=== PATIENT | male | born 1950 | race Caucasian/White ===

== ENCOUNTER 2016-06-23 16:26 | Emergency (ER) | payer MEDICARE, OTHER ==
[~2016-06-23] VITALS: Ht 180.3 cm; Wt 94.5 kg
[~2016-06-23 16:26] MED LIST: AMLO5TAB2; ATOR20TA15; CHOL1CAP2; CLOP75TA; CLOR7.5T3; GLIP10TA6; LISI10TA3; METF1000; METH10TA; PRED20; TRAZ100T4
[2016-06-23 16:29] VITALS: BP 137/85; PULSE 90; RESP 20; TEMP 98.5; O2SAT 94
[2016-06-30] MEDS ORDERED: DILA4TAB2 PO (11:37)
[2016-07-15] MEDS ORDERED: METH10TA (13:00)
[2016-07-15] MEDS ORDERED: PROM25TA5 (13:00)
[2016-07-21] MEDS ORDERED: METF500T (10:35)
[2016-07-27] MEDS ORDERED: OXYC-395 PO ×3 (15:14→15:51)
[2016-08-11] MEDS ORDERED: BACT400T PO (11:35)
[2016-08-23] MEDS ORDERED: OXYC-395 PO (15:04)
[2016-09-26] MEDS ORDERED: ENDO10TA8 PO (17:26)
== END 2016-06-23 17:43 | disposition left against medical advice (07) ==
LOC: NED 16:26
DX: M54.9 Dorsalgia, unspecified (principal); M79.605 Pain in left leg; Z53.21 Procedure and treatment not carried out due to patient leaving prior to being seen by health care provider
CPT/HCPCS: 99281

== ENCOUNTER 2016-06-27 14:41 | Emergency (ER) | payer MEDICARE ==
[2016-06-27 14:44] VITALS: BP 134/79; PULSE 74; RESP 20; TEMP 98.1; O2SAT 96
[2016-06-30] MEDS ORDERED: DILA4TAB2 PO (11:37)
[2016-07-15] MEDS ORDERED: PROM25TA5 (13:00)
[2016-07-15] MEDS ORDERED: METH10TA (13:00)
[2016-07-21] MEDS ORDERED: METF500T (10:35)
[2016-07-27] MEDS ORDERED: OXYC-395 PO ×3 (15:14→15:51)
[2016-08-11] MEDS ORDERED: BACT400T PO (11:35)
[2016-08-23] MEDS ORDERED: OXYC-395 PO (15:04)
[2016-09-26] MEDS ORDERED: ENDO10TA8 PO (17:26)
== END 2016-06-27 19:00 | disposition left against medical advice (07) ==
LOC: NED 14:41
DX: Z53.21 Procedure and treatment not carried out due to patient leaving prior to being seen by health care provider (principal)
CPT/HCPCS: 99281

== ENCOUNTER 2016-07-04 10:23 | Observation (INO) | payer MEDICARE ==
[~2016-07-04] VITALS: Ht 180.3 cm; Wt 92.7 kg
[~2016-07-04 10:23] MED LIST changes: +DILA4TAB2 PO
[2016-07-04] MEDS ORDERED: GELFOAM SIZE 100 ONE (11:15)
[2016-07-04] MEDS ORDERED: BUPIVACAINE HCL PF 0.25% 30 ML VIAL ONE (11:15)
[2016-07-04] MEDS ORDERED: THROMBIN (TOPICAL) 5,000 UNIT VIAL ONE (11:15)
[2016-07-04] MEDS ORDERED: LIDOCAINE 1%/EPINEPHrine 1:100,000 SOLN 30 ML VIAL ONE (11:15)
[2016-07-04] MEDS ORDERED: GENTAMICIN SULFATE 80 MG/2 ML VIAL ONE (11:16)
[2016-07-04 11:24] VITALS: BP 142/89; PULSE 70; RESP 16; TEMP 99.6; O2SAT 98
[2016-07-04] MEDS ORDERED: METOPROLOL TARTRATE 25 MG TAB PO PRN (11:30)
[2016-07-04] MEDS ORDERED: INSULIN HUMAN REGULAR 1,000 UNITS/10 ML VIAL SQ PRN (11:30)
[2016-07-04] MEDS ORDERED: ceFAZolin 2 GM PREMIX 50 ML IV SCH (11:45)
[2016-07-04 11:55] LABS: AUTOMATED NEUTROPHIL # 2.7 TH/MM3 (1.8-7.7); BASOPHIL % 0.3 % (0.0-2.0); EOSINOPHIL # 0.1 TH/MM3 (0-0.4); EOSINOPHIL % 2.4 % (0.0-4.0); HEMATOCRIT 38.3 % (39.0-51.0); HEMO FLAGS DIFF FINAL; LYMPH % 21.9 % (9.0-44.0); LYMPHOCYTE # 0.9 TH/MM3 (1.0-4.8); MEAN CELL VOLUME 91.8 FL (80.0-100.0); MEAN CORPUSCULAR HEMOGLOBIN 32.4 PG (27.0-34.0); MEAN CORPUSCULAR HGB CONC 35.3 % (32.0-36.0); MONO % 8.2 % (0.0-8.0); NEUT % 67.2 % (16.0-70.0); PLATELET COUNT 162 TH/MM3 (150-450); RED BLOOD COUNT 4.17 MIL/MM3 (4.50-5.90); RED CELL DISTRIBUTION WIDTH 13.8 % (11.6-17.2); WHITE BLOOD COUNT 4.1 TH/MM3 (4.0-11.0)
[2016-07-04] MEDS ORDERED: LACTATED RINGER'S 1000 ML INJ 2,000 ML IV ONE (12:00)
[2016-07-04] MEDS ORDERED: ONDANSETRON HCL 4 MG/2 ML VIAL IV PUSH ONE (12:00)
[2016-07-04] MEDS ORDERED: SODIUM CHLORID 0.9% 500 ML IV SCH (12:00)
[2016-07-04] MEDS ORDERED: NEOSTIGMINE 3 MG/3 ML SYR IV ONE (12:00)
[2016-07-04] MEDS ORDERED: PROPOFOL 200 MG/20 ML AMP IV ONE (12:00)
[2016-07-04] MEDS ORDERED: LACTATED RINGER'S 1000 ML IV SCH (12:00)
[2016-07-04] MEDS ORDERED: LACTATED RINGER'S 1000 ML INJ 1,000 ML IV SCH (12:00)
[2016-07-04 12:09] LABS: PROTHROMBIN TIME - PATIENT 10.5 SEC (9.8-11.6)
--- NOTE | 2016-07-04 12:19 | RADRPT ---
EXAM DATE/TIME: 07/04/2016 11:20 [facility] COMPARISON: No previous studies available for comparison. INDICATIONS : Evaluate for pneumonia, pneumothorax, or communicable disease. Pre-op for lumbar surgery today. MEDICAL HISTORY : Hypertension. Smoker. SURGICAL HISTORY : Stent placement. Port placement. ENCOUNTER: Initial ACUITY: 1 day PAIN SCORE: 0/10 LOCATION: Bilateral chest FINDINGS: [id number] in good position. Granuloma is present in the right base. Heart is minimally enlarged . Pulmonary vascularity is normal. Portion of bony skeleton visualized unremarkable. CONCLUSION: 1. Compensated cardiomegaly. 2. Granuloma left base. David Salas MD FACR on July 04, 2016 at 12:04 Board Certified Radiologist. This report was verified electronically.
[2016-07-04 12:22] LABS: BICARBONATE 28.2 MEQ/L (21.0-32.0); POTASSIUM 3.9 MEQ/L (3.5-5.1)
[2016-07-04] MEDS ORDERED: fentaNYL CITRATE 250 MCG/5 ML AMP ONE ×2 (13:25→17:49)
[2016-07-04] MEDS ORDERED: MIDAZOLAM HCL 2 MG/2 ML VIAL ONE (14:07)
[2016-07-04] MEDS ORDERED: DEXAMETHASONE SOD PHOS 4 MG/ML VIAL ONE (14:07)
[2016-07-04] MEDS ORDERED: FAMOTIDINE 20 MG/2 ML VIAL ONE (14:07)
[2016-07-04] MEDS ORDERED: ACETAMINOPHEN 1000 MG/100 ML VIAL IV ONE (14:13)
[2016-07-04] MEDS ORDERED: HYDROmorphone HCL PF 2 MG/ML VIAL ONE (14:14)
[2016-07-04] MEDS ORDERED: ceFAZolin INJ 1,000 MG VIAL IV ONE (16:51)
[2016-07-04] MEDS ORDERED: NALOXONE HCL 0.4 MG/ML AMP IV PRN (17:45)
[2016-07-04] MEDS ORDERED: HYDROmorphone HCL PF 1 MG/ML VIAL IV PRN (17:45)
[2016-07-04] MEDS ORDERED: ACETAMINOPHEN/HYDROcodone 325 MG/5 MG TAB PO PRN (17:45)
[2016-07-04] MEDS ORDERED: SODIUM CHLORIDE 0.9% FLUSH 5 ML FLUSH IVF PRN (17:45)
--- NOTE | 2016-07-04 18:11 | RADRPT ---
EXAM DATE/TIME: 07/04/2016 17:21 [facility] COMPARISON: No previous studies available for comparison. INDICATIONS : Lumbar spine L4-5 laminectomy. OR. MEDICAL HISTORY : Hypertension. SURGICAL HISTORY : Lumbar-sacral fusion, L5-S1. ENCOUNTER: Initial ACUITY: 1 day PAIN SCORE: Non-responsive. LOCATION: L4-5 FINDINGS: 2 cone down lateral views of the lower lumbar spine were obtained intraoperatively using a matrix cam era. This demonstrates the patient is status post fusion at the L5-S1 level with pedicle screws and p osterior fixation rods. There is bone grafting material is the interspace. On image #1 there are post erior surgical retractors present with a metal probe posterior to the L4-5 interspace. CONCLUSION: Limited localization study as described. Alejandro Cornell MD on July 04, 2016 at 18:09 Board Certified Radiologist. This report was verified electronically.
[2016-07-04] MEDS ORDERED: *morphine SULFATE 8 MG/ML PERIprocedure ONLY ONE ×3 (18:17→18:43)
[2016-07-04] MEDS: D5-1/2 NS + KCL 20 MEQ INJ 1,000 ML IV SCH (18:30)
[2016-07-04] MEDS ORDERED: *HYDROmorphone PF 1 MG VIAL PERIprocedural Use ONLY ONE ×2 (18:50→19:17)
[2016-07-04] MEDS ORDERED: CLOR7.5T3 PO (19:13)
[2016-07-04] MEDS ORDERED: CHOL1CAP2 PO (19:13)
[2016-07-04] MEDS ORDERED: GLIP10TA6 PO (19:13)
[2016-07-04] MEDS ORDERED: AMLO5TAB2 PO (19:13)
[2016-07-04] MEDS ORDERED: METF1000 PO (19:13)
[2016-07-04] MEDS ORDERED: TRAZ100T4 PO (19:13)
[2016-07-04] MEDS ORDERED: GLUCAGON 1 MG/ML VIAL OTHER PRN (19:15)
[2016-07-04] MEDS ORDERED: DEXTROSE 50% IN WATER 50 ML VIAL(D50) IV PUSH PRN (19:15)
--- NOTE | 2016-07-04 19:48 | PD.OP ---
Operative Report Date of Surgery: Jul 04, 2016 Preoperative Diagnosis: (1) Herniated nucleus pulposus, lumbar (2) Lumbar radiculopathy Left L4 5 sequestered herniated nucleus pulposus Left L4 radiculopathy Postoperative Diagnosis: (1) Herniated nucleus pulposus, lumbar (2) Lumbar radiculopathy Left L4 5 sequestered herniated nucleus pulposus Left L4 radiculopathy Procedure: Left L4 laminotomy, resection sequestered herniated nucleus pulposis- microtechnique Anesthesia: Gen. endotracheal Surgeon: George Goldberg Certified Endoscopy Technician(s): Alejandro Hernandez Operation and Findings: Procedure in detail: The patient was brought into the operating room and general endotracheal anesthesia induced without difficulty. Knee-high sequential compression devices were placed. Lines were established by Anesthesia The patient was placed in prone position on the concentric Tyler table with the side bolsters and all extremities appropriately padded Appropriate timeout procedure was performed with all personal present and in agreement The lumbar region was shaved with clippers and sterilely prepped and draped. 1% Xylocaine with epinephrine was used for local infiltration over the incision site which was made just to the left of midline at the L4-5 level. The incision was carried sharply down to the lumbodorsal fascia which was incised just adjacent to the spinous processes. Cruz elevator was used for subperiosteal elevation of paraspinous musculature and fascia away from the lamina and spinous process The deep self-retaining retractor was placed. The appropriate level was verified with intraoperative C-arm. The microscope was moved into place and used for the remainder of the procedure including the closure. The TPS drill with the 5 mm bone bur followed by the 3 mm Kerrison rongeur was used to perform a laminotomy at the left L4 level, removing an approximately 1 cm area of bone at the central left L4 lamina, taking care to preserve the integrity of the pars intra-articularis and facet. Ligamentum flavum was elevated away from the thecal sac and resected with the Kerrison rongeur which was also used to further remove ligament along the lateral recess. The exiting left L4 and traversing left L5 nerve root were identified. The thecal sac and traversing nerve root were then retracted gently medially revealing the underlying disc and annulus. The patient was noted to have a moderate left L4 5 annular displacement which did not appear to significantly impinge on the exiting left L5 nerve root. The ligament overlying the left L5 nerve root at the disc space was well decompressed to make certain that there was no significant lateral recess stenosis impinging on the left L5 nerve. The long blunt nerve hook was used to carefully free up ventral to the exiting left L4 nerve root at the mid to medial left L4 5 foramen. At this point, a large fragment of sequestered herniated disc material was encountered just beneath the exiting left L4 nerve root. This was removed piecemeal along with several other fragments of herniated disc material. The neural structures appeared well decompressed at the end of the procedure. Bleeding was carefully controlled with bone wax for the bone bleeding and bipolar forceps. There is no significant bleeding time of closure. No cerebrospinal fluid leakage was encountered. The closure was performed with 0 Vicryl interrupted for the deep and superficial fascia, with 3-0 Vicryl interrupted for the subcutaneous closure, and 4-0 Vicryl running for the subcuticular closure. The dressing of sterile Mastisol, Steri-Strips, and Primapore dressing was applied. The patient was taken to recovery room in stable condition. All counts were correct at the end of the case. No specimen was sent to pathology. Estimated blood loss was 100 cc . George Goldberg MD Jul 04, 2016 19:48
[2016-07-04 21:05] VITALS: BP 156/77; PULSE 60; RESP 18; TEMP 97.5; O2SAT 97
[2016-07-04] MEDS: oxyCODONE/ACETAMINOPHEN 10 MG/325 MG TAB PO PRN (22:35)
[2016-07-04] MEDS: SODIUM CHLORIDE 0.9% FLUSH 5 ML FLUSH IVF SCH (22:35)
[2016-07-04] MEDS: INSULIN NovoLIN REGULAR SUPPLEMENTAL SCALE SQ SCH (22:42)
[2016-07-04] MEDS: MORPHINE SULFATE 4 MG/ML INJ IV PRN (23:50)
[2016-07-05 00:24] VITALS: BP 130/71; PULSE 87; RESP 18; TEMP 97.9; O2SAT 95
[2016-07-05 04:47] VITALS: BP 124/63; PULSE 82; RESP 16; TEMP 97.2; O2SAT 99
[2016-07-05] MEDS: oxyCODONE/ACETAMINOPHEN 10 MG/325 MG TAB PO PRN ×2 (06:08→12:43)
[2016-07-05] MEDS: INSULIN NovoLIN REGULAR SUPPLEMENTAL SCALE SQ SCH ×2 (06:09→12:42)
[2016-07-05] MEDS: D5-1/2 NS + KCL 20 MEQ INJ 1,000 ML IV SCH (06:10)
[2016-07-05] MEDS: MORPHINE SULFATE 4 MG/ML INJ IV PRN ×2 (07:31→10:29)
--- NOTE | 2016-07-05 08:15 | EKG ---
Date Performed: 07/04/2016 Time Performed: 12:27:03 PTAGE: 65 years EKG: Sinus rhythm MODERATE T-WAVE ABNORMALITY, CONSIDER ANTEROLATERAL ISCHEMIA ABNORMAL ECG NO PREVIOUS TRACING DOCTOR: Anjum Sumner Interpretating Date/Time 07/05/2016 08:13:21
[2016-07-05 08:35] VITALS: BP 134/60; PULSE 65; RESP 18; TEMP 97.7; O2SAT 97
[2016-07-05] MEDS: SODIUM CHLORIDE 0.9% FLUSH 5 ML FLUSH IVF SCH (08:36)
[2016-07-05 08:45] LABS: AUTOMATED NEUTROPHIL # 5.4 TH/MM3 (1.8-7.7); BASOPHIL % 0.1 % (0.0-2.0); EOSINOPHIL % 0.4 % (0.0-4.0); HEMATOCRIT 38.5 % (39.0-51.0); HEMO FLAGS DIFF FINAL; LYMPH % 13.8 % (9.0-44.0); MEAN CORPUSCULAR HGB CONC 34.5 % (32.0-36.0); MONO % 8.5 % (0.0-8.0); NEUT % 77.2 % (16.0-70.0); PLATELET COUNT 161 TH/MM3 (150-450); RED BLOOD COUNT 4.15 MIL/MM3 (4.50-5.90); RED CELL DISTRIBUTION WIDTH 13.8 % (11.6-17.2)
[2016-07-05] MEDS ORDERED: TAMSULOSIN HCL 0.4 MG CAP PO SCH (09:00)
[2016-07-05 09:16] LABS: BICARBONATE 29.1 MEQ/L (21.0-32.0); POTASSIUM 3.9 MEQ/L (3.5-5.1)
[2016-07-05 10:39] VITALS: O2SAT 96
--- NOTE | 2016-07-05 16:33 | HHI.DCPOC ---
Discharge Care Plan Diagnosis: (1) Lumbar radiculopathy (2) Herniated nucleus pulposus, lumbar Your Health Problems Are: Difficulty with ADL Incision/Drains Exercise Tolerance Loss of Movements Chronic Pain Goals to Promote Your Health * To prevent worsening of your condition and complications * To maintain your health at the optimal level Directions to Meet Your Goals Take your medications as prescribed Follow your dietary instruction Follow activity as directed Keep your appointments as scheduled Take your immunizations and boosters as scheduled If your symptoms worsen call your PCP, if no PCP go to Urgent Care Center or Emergency Room Smoking is Dangerous to Your Health. Avoid second hand smoke Call the 24-hour hour crisis hotline for domestic abuse at George Goldberg MD Jul 05, 2016 16:33
[2016-07-05 16:36] VITALS: BP 168/77; PULSE 81; RESP 18; TEMP 96; O2SAT 97
--- NOTE | 2016-07-05 16:41 | HHI.DS ---
Discharge Summary Admission Date Jul 04, 2016 at 17:37 Discharge Date: Jul 05, 2016 Admitting Diagnosis Left L4 5 herniated nucleus pulposis Left L4 radiculopathy (1) Lumbar radiculopathy Diagnosis: Secondary ICD Code: M54.16 (2) Herniated nucleus pulposus, lumbar Diagnosis: Principal ICD Code: M51.26 Procedures 07/04/16: Left L4 laminotomy, microdiscectomy CBC/BMP: 07/05/16 0746 07/05/16 0740 Significant Findings Laboratory Tests Test 07/04/16 07/05/16 07/05/16 11:26 07:40 07:46 Red Blood Count 4.17 MIL/MM3 4.15 MIL/MM3 (4.50-5.90) (4.50-5.90) Hematocrit 38.3 % 38.5 % (39.0-51.0) (39.0-51.0) Monocytes (%) (Auto) 8.2 % (0.0-8.0) 8.5 % (0.0-8.0) Lymphocytes # (Auto) 0.9 TH/MM3 (1.0-4.8) Sodium Level 135 MEQ/L 135 MEQ/L (136-145) (136-145) Blood Urea Nitrogen 3 MG/DL (7-18) 4 MG/DL (7-18) Creatinine 0.57 MG/DL (0.60-1.30) Random Glucose 128 MG/DL 134 MG/DL (74-106) (74-106) Neutrophils (%) (Auto) 77.2 % (16.0-70.0) Hospital Course Patient admitted for the above noted procedure performed without complication. Drain placed postoperative due to increased bleeding at the time of surgery. Patient diabetic, requiring postoperative monitoring. Patient level of function significantly diminished prior to surgery, requiring physical therapy evaluation prior to discharge. 07/05/16 patient ambulating with assistive device. Pain adequately controlled with oral medications. Butts catheter out and voiding without difficulty. Lumbar drain discontinued. Considered stable for discharge. Pt Condition on Discharge: Stable Discharge Disposition: Discharge Home Discharge Instructions DIET: Follow Instructions for: As Tolerated, No Restrictions ACTIVITIES You can perform: Weight Bearing As Anni Activities to Avoid: Lifting/Bending, Strenuous Activity Follow up Referrals: Appointment for Follow Up @ Dr Goldberg Continued Medications: Amlodipine (Amlodipine) 5 Mg Tab 1 TAB PO DAILY Blood Pressure Management #[address] (Fenofibric Acid Dr) 135 mg Capdr 1 TAB PO DAILY Constipation #30 TAB Clorazepate (Clorazepate) 7.5 Mg Tab 1 TAB PO DAILY Control Anxiety #75 TAB Glipizide (Glipizide) 10 Mg Tab 1 TAB PO DAILY Blood Sugar Management #60 TAB Hydromorphone (Dilaudid) 4 Mg Tab 4 MG PO Q6H PRN Pain Management #90 Ref 0 TAB Metformin (Metformin) 1,000 Mg Tab 1 TAB PO DAILY Blood Sugar Management #30 Ref 0 TAB Trazodone (Trazodone) 100 Mg Tab 1 TAB PO DAILY Anxiety and/or Insomnia #60 TAB Discontinued Medications: Atorvastatin (Atorvastatin) 20 Mg Tab DAILY #90 Clopidogrel (Clopidogrel) 75 Mg Tab DAILY #90 George Goldberg MD Jul 05, 2016 16:41
--- NOTE | 2016-07-05 17:11 | HHI.NSPN ---
History Interval History 07/04/16: Left L4 laminotomy-microdiscectomy, resection sequestered herniated nucleus pulposus System Review Comments Moderate central to left low back and gluteal pain. No complaint of significant radiating lower extremity pain. Butts out without complaint of bladder dysfunction. Exam Results Vital Signs Date Time Temp Pulse Resp B/P Pulse Ox O2 Delivery O2 Flow Rate FiO2 07/05/16 16:36 96.0 81 18 168/77 97 07/05/16 10:39 21 07/04/16 21:30 Nasal Cannula 4.00 Intake and Output 07/04/16 07/04/16 07/05/16 08:00 16:00 00:00 Intake Total 1650 ml Output Total 1065 ml Balance 585 ml Physical Examination Awake and alert Dressing dry and intact Sensation intact lower extremities Strength difficult to accurately assess in the lower extremities due to complaint of pain with testing. Iliopsoas and quadriceps 3-4 right and 2-3 left, with complaint of low back pain with testing. 4/5 right and 2/5 left tibialis anterior and gastrocsoleus with complaint of left leg pain with testing Pain increases low back with active left straight leg raising. Mild to moderate stable lower extremity edema postoperative Medical Decision Making Impression and Plan Impression 1. Stable neurologic function postoperatively. 2. Left L4 radiculopathy with some improvement in leg pain symptoms. Still with persistent left low back and gluteal pain has anticipated preoperative. Plan: Patient ambulate with physical therapy today. No pending at the time of this discharge. Tolerating diet No obvious urinary incontinence or Plan discharge home today. Patient has prescription for Dilaudid to be filled at the hospital. Signs and symptoms to watch for and activity precautions as well as exercises have been discussed. I will see him back in the office in approximately 10 days for follow-up George Goldberg MD Jul 05, 2016 17:11
[2016-07-15] MEDS ORDERED: METH10TA (13:00)
[2016-07-15] MEDS ORDERED: PROM25TA5 (13:00)
[2016-07-21] MEDS ORDERED: METF500T (10:35)
[2016-07-27] MEDS ORDERED: OXYC-395 PO ×3 (15:14→15:51)
[2016-08-11] MEDS ORDERED: BACT400T PO (11:35)
[2016-08-23] MEDS ORDERED: OXYC-395 PO (15:04)
[2016-09-26] MEDS ORDERED: ENDO10TA8 PO (17:26)
== END 2016-07-05 17:46 | disposition home or self-care (01) ==
LOC: HSDC 10:23 → HSDI 17:37 → N05B 19:59
PROVIDERS: ADMIT Neurological Surgery; ATTEND Neurological Surgery
DX: M51.16 Intervertebral disc disorders with radiculopathy, lumbar region (principal); I10 Essential (primary) hypertension; I25.10 Atherosclerotic heart disease of native coronary artery without angina pectoris; Z98.61 Coronary angioplasty status
CPT/HCPCS: 00630; 63030; 71010; 72020; 76000; 80048; 85025; 85610; 86850; 86900; 86901; 93005; 94150; G0378; J0131; J0690; J1100; J1170; J1580; J2250; J2270; J2405; J2710; J3010; J3480; J7120